=== PATIENT | male | born 1955 | race Asian ===

== ENCOUNTER 2016-12-02 | Outpatient (CLI) | payer OTHER ==
[2016-12-03] MEDS ORDERED: ALPR0.5T24 PO (10:07)
[2016-12-03] MEDS ORDERED: AMBIEN5 MG PO (10:12)
[2016-12-03] MEDS ORDERED: CARI350T15 PO (10:16)
[2016-12-03] MEDS ORDERED: LORTAB 10-325 M1 TAB PO (10:22)
[2016-12-03] MEDS ORDERED: AMLO2.5T PO (10:30)
== END 2016-12-02 00:02 | disposition short-term general hospital (02) ==
LOC: AMB
DX: R47.01 Aphasia (principal); R29.810 Facial weakness; R26.89 Other abnormalities of gait and mobility; R53.1 Weakness
CPT/HCPCS: A0425; A0429

== ENCOUNTER 2016-12-03 00:07 | Observation (INO) | payer OTHER ==
[2016-12-03] VITALS (13 sets, daily range): BP systolic 123–150; BP diastolic 72–94; TEMP 97.5–98.6; Ht 185.4 cm; Wt 100.0 kg
[~2016-12-03] VITALS: Ht 185.4 cm; Wt 100.0 kg
[2016-12-03 01:44] LABS: PLATELET COUNT 191 K/uL (142-355)
[2016-12-03 01:52] LABS: SODIUM 136 mmol/L (136-145)
[2016-12-03] MEDS ORDERED: ALPR0.5T24 PO (10:07)
[2016-12-03] MEDS ORDERED: AMBIEN5 MG PO (10:12)
[2016-12-03] MEDS ORDERED: CARI350T15 PO (10:16)
[2016-12-03] MEDS ORDERED: LORTAB 10-325 M1 TAB PO (10:22)
[2016-12-03] MEDS ORDERED: AMLO2.5T PO (10:30)
[2016-12-04 00:19] VITALS: BP 134/83; TEMP 98.1
[2016-12-04 04:00] VITALS: BP 117/80; TEMP 98.2
[2016-12-04 08:00] VITALS: BP 111/80; TEMP 97.8
[2016-12-04 08:35] LABS: POTASSIUM 3.6 mmol/L (3.6-5.2); SODIUM 133 mmol/L (136-145)
[2016-12-04 08:36] LABS: PLATELET COUNT 181 K/uL (142-355)
[2016-12-04 11:37] VITALS: BP 110/74; TEMP 98.1
== END 2016-12-04 15:45 | disposition home or self-care (01) ==
LOC: ED 00:07 → MED/SURG 01:37
PROVIDERS: Emergency Medicine; ADMIT Specialist
DX: G45.8 Other transient cerebral ischemic attacks and related syndromes (principal); I10 Essential (primary) hypertension
CPT/HCPCS: 36415; 80048; 80053; 80061; 83090; 83735; 84100; 84484; 85027; 85651; 86039; 93005; 99220; 99285; G0378

== ENCOUNTER 2016-12-06 10:37 | Emergency (ER) | payer OTHER ==
[~2016-12-06] VITALS: Ht 185.4 cm; Wt 102.1 kg
[~2016-12-06 10:37] MED LIST: ALPR0.5T24 PO; AMBIEN5 MG PO; AMLO2.5T PO; CARI350T15 PO; LORTAB 10-325 M1 TAB PO
[2016-12-06 10:47] VITALS: TEMP 98
[2016-12-06 11:26] LABS: PLATELET COUNT 180 K/uL (142-355)
[2016-12-06 11:50] LABS: POTASSIUM 3.9 mmol/L (3.6-5.2); SODIUM 138 mmol/L (136-145)
[2016-12-06 14:30] VITALS: BP 145/85
== END 2016-12-06 15:06 | disposition short-term general hospital (02) ==
LOC: ED 10:37
PROVIDERS: Specialist
DX: R29.818 Other symptoms and signs involving the nervous system (principal)
CPT/HCPCS: 36415; 80053; 82550; 82553; 84484; 85027; 93005; 99284

== ENCOUNTER 2016-12-06 15:06 | Outpatient (CLI) | payer OTHER | END 2016-12-06 16:34 | disposition short-term general hospital (02) | LOC: AMB 15:06 | DX: R29.818 Other symptoms and signs involving the nervous system (principal) | CPT/HCPCS: A0425; A0429 ==

== ENCOUNTER 2016-12-18 23:55 | Inpatient (IN) | payer OTHER ==
[~2016-12-18] VITALS: Ht 185.4 cm; Wt 101.2 kg
[2016-12-19 00:06] VITALS: BP 154/83; TEMP 98.3
[2016-12-19] MEDS ORDERED: ASPI-93 PO (00:13)
[2016-12-19 00:47] LABS: PLATELET COUNT 229 K/uL (142-355)
[2016-12-19 01:08] LABS: POTASSIUM 3.8 mmol/L (3.6-5.2); SODIUM 133 mmol/L (136-145)
[2016-12-19 04:00] VITALS: BP 135/87; BP 165/91; TEMP 98.1; TEMP 98.2; Ht 185.4 cm; Wt 101.2 kg
[2016-12-19 08:00] VITALS: BP 127/78; TEMP 97.6
[2016-12-19] MEDS ORDERED: LISI5TAB10 PO (08:42)
[2016-12-19] MEDS ORDERED: CLOP75TA2 PO (08:43)
[2016-12-19] MEDS ORDERED: LIPITOR80 MG PO (08:44)
[2016-12-19 09:40] LABS: POTASSIUM 4.3 mmol/L (3.6-5.2); SODIUM 134 mmol/L (136-145)
[2016-12-19 12:00] VITALS: BP 124/77; TEMP 98.8
[2016-12-19 16:00] VITALS: BP 123/82; TEMP 97.8
[2016-12-19 20:00] VITALS: BP 152/96; TEMP 99.2
[2016-12-20] VITALS: BP 145/87; TEMP 97.9
[2016-12-20 04:00] VITALS: BP 129/80; TEMP 97.7
[2016-12-20 06:40] LABS: POTASSIUM 4.1 mmol/L (3.6-5.2); SODIUM 134 mmol/L (136-145)
[2016-12-20 06:43] LABS: PLATELET COUNT 208 K/uL (142-355)
[2016-12-20 08:00] VITALS: BP 124/82; TEMP 97.7
[2016-12-20 12:25] VITALS: BP 134/86; TEMP 98
[2016-12-20 15:21] VITALS: BP 112/68; TEMP 97.8
[2016-12-20 20:00] VITALS: BP 116/71; TEMP 98.6
[2016-12-21] VITALS: BP 122/84; TEMP 98.9
[2016-12-21 04:00] VITALS: BP 142/86; TEMP 97.9
[2016-12-21 05:12] LABS: PLATELET COUNT 214 K/uL (142-355)
[2016-12-21 05:53] LABS: POTASSIUM 4.2 mmol/L (3.6-5.2); SODIUM 135 mmol/L (136-145)
[2016-12-21 08:00] VITALS: BP 127/70; TEMP 98.8
[2016-12-21 12:04] VITALS: BP 118/72; TEMP 98.8
[2016-12-21 16:14] VITALS: BP 127/64; TEMP 98.7
[2016-12-21 20:00] VITALS: BP 118/77; TEMP 98.1
[2016-12-22] VITALS (7 sets, daily range): BP systolic 111–133; BP diastolic 71–93; TEMP 97.6–98.7
[2016-12-22 07:14] LABS: PLATELET COUNT 231 K/uL (142-355)
[2016-12-22 07:31] LABS: POTASSIUM 4.3 mmol/L (3.6-5.2); SODIUM 135 mmol/L (136-145)
[2016-12-23 04:00] VITALS: BP 131/87; TEMP 98.6
[2016-12-23 06:48] LABS: PLATELET COUNT 260 K/uL (142-355)
[2016-12-23 07:57] VITALS: BP 116/71; TEMP 97.9
[2016-12-23 09:04] LABS: POTASSIUM 4.4 mmol/L (3.6-5.2); SODIUM 134 mmol/L (136-145)
[2016-12-23 12:00] VITALS: BP 113/76; TEMP 98.3
[2016-12-23 16:00] VITALS: BP 127/77; TEMP 97.8
[2016-12-23 20:00] VITALS: BP 129/80; TEMP 98.6
[2016-12-24] VITALS: BP 139/83; TEMP 98.5
[2016-12-24 04:00] VITALS: BP 133/86; TEMP 98.1
[2016-12-24 08:00] VITALS: BP 123/84; TEMP 98.7
[2016-12-24 09:55] LABS: PLATELET COUNT 224 K/uL (142-355)
[2016-12-24 10:22] LABS: POTASSIUM 4.2 mmol/L (3.6-5.2); SODIUM 133 mmol/L (136-145)
[2016-12-24 12:00] VITALS: BP 101/81; TEMP 98.6
[2016-12-24 16:00] VITALS: BP 111/72; TEMP 97.8
[2016-12-24 20:00] VITALS: BP 123/79; TEMP 98.7
[2016-12-25] VITALS: BP 114/77; TEMP 98.1
[2016-12-25 04:00] VITALS: BP 127/84; TEMP 98
[2016-12-25 06:05] LABS: PLATELET COUNT 239 K/uL (142-355)
[2016-12-25 06:21] LABS: POTASSIUM 4.1 mmol/L (3.6-5.2); SODIUM 132 mmol/L (136-145)
[2016-12-25 08:30] VITALS: BP 109/86; TEMP 98
[2016-12-25 12:00] VITALS: BP 118/74; TEMP 98
[2016-12-25 16:00] VITALS: BP 137/79; TEMP 98.2
== END 2016-12-25 18:00 | disposition home or self-care (01) | DRG 65 ==
LOC: ED 23:55 → MED/SURG 12-19 01:46
PROVIDERS: Emergency Medicine; Internal Medicine
DX: I63.512 Cerebral infarction due to unspecified occlusion or stenosis of left middle cerebral artery (principal); E87.1 Hypo-osmolality and hyponatremia; I10 Essential (primary) hypertension; Z86.73 Personal history of transient ischemic attack (TIA), and cerebral infarction without residual deficits; I69.331 Monoplegia of upper limb following cerebral infarction affecting right dominant side; I69.320 Aphasia following cerebral infarction; I69.392 Facial weakness following cerebral infarction; R13.12 Dysphagia, oropharyngeal phase
CPT/HCPCS: 36415; 36591; 80048; 80053; 80061; 82550; 82553; 82948; 83735; 84100; 84484; 85027; 86147; 93005; 94760; 99283

== ENCOUNTER 2018-10-03 18:06 | Emergency (ER) | payer OTHER ==
[~2018-10-03] VITALS: Ht 185.4 cm; Wt 88.9 kg
[~2018-10-03 18:06] MED LIST changes: +ASPI-93 PO; +CLOP75TA2 PO; +LIPITOR80 MG PO; +LISI5TAB10 PO
[2018-10-03 19:39] VITALS: BP 118/73; TEMP 98.1
== END 2018-10-03 19:40 | disposition home or self-care (01) ==
LOC: ED 18:06
DX: K59.09 Other constipation (principal); K60.2 Anal fissure, unspecified
CPT/HCPCS: 99282

== ENCOUNTER 2019-09-20 12:45 | Outpatient (CLI) | payer OTHER | END 2019-09-20 21:37 | disposition home or self-care (01) | LOC: US 12:45 | DX: I73.9 Peripheral vascular disease, unspecified (principal) ==

== ENCOUNTER 2019-10-07 14:34 | Outpatient (CLI) | payer OTHER | END 2019-10-07 21:32 | disposition home or self-care (01) | LOC: LABW 14:34 | DX: B35.1 Tinea unguium (principal) | CPT/HCPCS: 36415; 84450; 84460 ==

== ENCOUNTER 2019-12-10 14:49 | Outpatient (CLI) | payer OTHER | END 2019-12-10 22:07 | disposition home or self-care (01) | LOC: LABW 14:49 | DX: B35.1 Tinea unguium (principal) | CPT/HCPCS: 36415; 84450; 84460 ==

== ENCOUNTER 2019-12-29 11:49 | Outpatient (CLI) | payer OTHER ==
[2019-12-29 12:05] LABS: PLATELET COUNT 161 K/uL (142-355)
[2019-12-29 12:15] LABS: POTASSIUM 3.9 mmol/L (3.6-5.2)
== END 2019-12-29 20:07 | disposition home or self-care (01) ==
LOC: LABW 11:49
PROVIDERS: Family Medicine
DX: I10 Essential (primary) hypertension (principal); E78.2 Mixed hyperlipidemia; G89.29 Other chronic pain; M54.5 Low back pain
CPT/HCPCS: 36415; 80053; 80061; 80307; 85027

== ENCOUNTER 2020-02-21 18:47 | Emergency (ER) | payer OTHER | END 2020-02-21 19:33 | disposition home or self-care (01) | LOC: ED 18:47 | DX: R52 Pain, unspecified (principal); R39.198 Other difficulties with micturition | CPT/HCPCS: 99281 ==

== ENCOUNTER 2020-02-21 21:29 | Emergency (ER) | payer OTHER ==
[~2020-02-21] VITALS: Ht 185.4 cm; Wt 75.8 kg
[2020-02-21 23:20] LABS: PLATELET COUNT 145 K/uL (142-355)
[2020-02-21 23:28] LABS: POTASSIUM 4.1 mmol/L (3.6-5.2)
[2020-02-22 04:03] VITALS: BP 146/72; TEMP 100
== END 2020-02-22 04:47 | disposition home or self-care (01) ==
LOC: ED 21:29
PROVIDERS: General Practice
DX: N20.0 Calculus of kidney (principal); N50.89 Other specified disorders of the male genital organs; Z85.46 Personal history of malignant neoplasm of prostate
CPT/HCPCS: 36415; 80053; 81000; 82105; 83605; 83615; 83735; 84153; 84702; 85027; 96365; 96366; 99284; J0744; J3475; Q9963

== ENCOUNTER 2020-05-01 10:25 | Outpatient (CLI) | payer OTHER | END 2020-05-01 23:32 | disposition home or self-care (01) | LOC: MRI 10:25 | DX: M25.774 Osteophyte, right foot (principal) ==

== ENCOUNTER 2020-10-10 08:41 | Outpatient (CLI) | payer OTHER ==
[2020-10-10 09:06] LABS: PLATELET COUNT 161 K/uL (142-355)
[2020-10-10 09:17] LABS: POTASSIUM 4.1 mmol/L (3.6-5.2)
== END 2020-10-10 19:13 | disposition home or self-care (01) ==
LOC: LABW 08:41
PROVIDERS: ATTEND Family Medicine
DX: I10 Essential (primary) hypertension (principal); E78.2 Mixed hyperlipidemia; Z79.899 Other long term (current) drug therapy; G89.29 Other chronic pain
CPT/HCPCS: 36415; 80053; 80061; 80307; 85027

== ENCOUNTER 2020-10-13 09:54 | Outpatient (CLI) | payer OTHER | END 2020-10-13 21:37 | disposition home or self-care (01) | LOC: NM 09:54 | PROVIDERS: ATTEND Podiatrist | DX: M19.071 Primary osteoarthritis, right ankle and foot (principal) | CPT/HCPCS: A9561 ==

== ENCOUNTER 2021-02-14 12:15 | Emergency (ER) | payer OTHER ==
[~2021-02-14] VITALS: Ht 185.4 cm; Wt 95.3 kg
[2021-02-14 12:31] VITALS: TEMP 97.6
[2021-02-14 14:17] VITALS: BP 133/74
== END 2021-02-14 14:18 | disposition home or self-care (01) ==
LOC: ED 12:15
DX: G45.8 Other transient cerebral ischemic attacks and related syndromes (principal)
CPT/HCPCS: 99282; 99283

== ENCOUNTER 2021-04-25 09:34 | Outpatient (CLI) | payer OTHER | END 2021-04-25 20:09 | disposition home or self-care (01) | LOC: US 09:34 | PROVIDERS: ATTEND Family Medicine | DX: R10.9 Unspecified abdominal pain (principal) ==

== ENCOUNTER 2021-10-01 14:13 | Outpatient (CLI) | payer OTHER | END 2021-10-01 18:56 | disposition home or self-care (01) | LOC: CT 14:13 | PROVIDERS: ATTEND Nurse Practitioner Adult Health | DX: R29.90 Unspecified symptoms and signs involving the nervous system (principal); R47.1 Dysarthria and anarthria; I69.30 Unspecified sequelae of cerebral infarction; R51.9 Headache, unspecified ==

== ENCOUNTER 2022-02-03 14:26 | Emergency (ER) | payer OTHER ==
[~2022-02-03] VITALS: Ht 185.4 cm; Wt 95.3 kg
[2022-02-03 14:33] VITALS: TEMP 97.4
[2022-02-03 15:40] VITALS: BP 128/82
== END 2022-02-03 15:40 | disposition home or self-care (01) ==
LOC: ED 14:26
DX: S93.691A Other sprain of right foot, initial encounter (principal); S93.504A Unspecified sprain of right lesser toe(s), initial encounter; S43.491A Other sprain of right shoulder joint, initial encounter; W18.39XA Other fall on same level, initial encounter; Y92.89 Other specified places as the place of occurrence of the external cause
CPT/HCPCS: 99282; J1885

== ENCOUNTER 2022-02-22 10:21 | Outpatient (CLI) | payer OTHER | END 2022-02-22 19:04 | disposition home or self-care (01) | LOC: CT 10:21 | PROVIDERS: ATTEND Family Medicine | DX: R10.12 Left upper quadrant pain (principal) ==

== ENCOUNTER 2022-05-30 10:27 | Outpatient (CLI) | payer OTHER | END 2022-05-30 23:09 | disposition home or self-care (01) | LOC: MRI 10:27 | PROVIDERS: ATTEND Family Medicine | DX: R47.1 Dysarthria and anarthria (principal); I69.30 Unspecified sequelae of cerebral infarction ==

== ENCOUNTER 2022-10-08 18:49 | Emergency (ER) | payer OTHER ==
[~2022-10-08] VITALS: Ht 185.4 cm; Wt 98.9 kg
[2022-10-08 18:51] VITALS: TEMP 98.5
[2022-10-08 19:25] LABS: PLATELET COUNT 186 K/uL (142-355)
[2022-10-08 19:44] LABS: POTASSIUM 3.9 mmol/L (3.6-5.2)
[2022-10-08 21:25] VITALS: BP 147/96
== END 2022-10-08 21:25 | disposition home or self-care (01) ==
LOC: ED 18:49
PROVIDERS: Emergency Medicine
DX: R11.0 Nausea (principal); R51.9 Headache, unspecified; W18.39XA Other fall on same level, initial encounter; Y92.098 Other place in other non-institutional residence as the place of occurrence of the external cause; R60.0 Localized edema
CPT/HCPCS: 36415; 80053; 82150; 83690; 83880; 84484; 85027; 93005; 96374; 99284; J2405